=== PATIENT | male | born 1975 | race Caucasian/White ===

== ENCOUNTER 2024-03-04 21:53 | Emergency (ER) | payer BC, SELFPAY ==
[2024-03-04 22:01] VITALS: BP 152/105; PULSE 100; RESP 20; TEMP 37; O2SAT 100
[2024-03-05 00:17] VITALS: O2SAT 98
[2024-03-05 00:18] VITALS: BP 140/97; PULSE 102; RESP 17; O2SAT 97
--- NOTE | 2024-03-05 01:04 | ED.GENADULT ---
HPI - General Adult General Chief complaint: Unspecified Stated complaint: rectal issues Time Seen by Provider: 03/05/24 00:44 History of Present Illness HPI narrative: 48 y/o M presents to the emergency for hemorrhoids and rectal pain. Patient states he has had hemorrhoids for several weeks. States over the past few days his rectal pain is significantly worsened. He states he feels his hemorrhoids prolapsing and has to push them after he goes to the bathroom. Denies fever. Related Data Allergies Allergy/AdvReac Type Severity Reaction Status Date / Time No Known Allergies Allergy Verified 03/04/24 22:06 Review of Systems Review of Systems: All systems reviewed & are unremarkable except as noted in HPI and below Exam Narrative: GENERAL: Well-appearing, well-nourished, and in no acute distress. HEAD: Normocephalic, atraumatic. EYES: PERRLA and EOMI. RECTAL: Chaperoned by tech [place]: External hemorrhoid visualized that is nonthrombosed. Multiple internal hemorrhoids palpable and tender to palpation. No active bleeding. No anal fissures. EXTREMITIES: Normal range of motion. No edema. SKIN: Warm, dry, no rash. NEURO: No focal deficits. Alert and oriented x3 Course Vital Signs Vital signs: Vital Signs Temperature 98.6 F 03/04/24 22:01 Pulse Rate 100 03/04/24 22:01 Respiratory Rate 20 03/04/24 22:01 Blood Pressure 152/105 H 03/04/24 22:01 Pulse Oximetry 100 03/04/24 22:01 Oxygen Delivery Room Air 03/04/24 22:01 Temperature 98.6 F 03/04/24 22:01 Pulse Rate 102 H 03/05/24 00:18 Respiratory Rate 17 03/05/24 00:18 Blood Pressure 140/97 H 03/05/24 00:18 Pulse Oximetry 97 03/05/24 00:18 Oxygen Delivery Room Air 03/04/24 22:01 Medical Decision Making [facility] Narrative Medical decision making narrative: 48-year-old male presents to emergency department for rectal pain and hemorrhoids for several weeks, worsening over the past couple of days. Vital significant for hypertension. He is afebrile nontoxic appearing. Exam is significant for an external hemorrhoid and several internal hemorrhoids that are nonthrombosed and not prolapsed. I discussed supportive care including preparation H suppositories, Sitz baths, stool softeners, high-fiber diet, increase fluid intake and follow-up with general surgery. Patient and his fiancee are upset that I am not removing hemorrhoids in the ED. He is repeatedly asking if I can drain his hemorrhoids and states he is in severe and debilitating pain. I discussed it would be inappropriate to perform any procedures on the hemorrhoids in the ED given there is no thrombosed hemorrhoids. I again enforced the treatment plan and discussed initial trial of suppositories given he has not tried this at home and importance for follow up for further management. Will provide a very short course of Speculator for breakthrough pain in the interim. strict ED return precautions discussed. He is agreeable with the plan verbalized understanding. Discharged in stable condition. Vital Signs Vital Signs: Vital Signs Temperature 98.6 F 03/04/24 22:01 Pulse Rate 100 03/04/24 22:01 Respiratory Rate 20 03/04/24 22:01 Blood Pressure 152/105 H 03/04/24 22:01 Pulse Oximetry 100 03/04/24 22:01 Oxygen Delivery Room Air 03/04/24 22:01 Temperature 98.6 F 03/04/24 22:01 Pulse Rate 102 H 03/05/24 00:18 Respiratory Rate 17 03/05/24 00:18 Blood Pressure 140/97 H 03/05/24 00:18 Pulse Oximetry 97 03/05/24 00:18 Oxygen Delivery Room Air 03/04/24 22:01 Discharge Plan Discharge Clinical Impression: Hemorrhoids Qualifiers: Hemorrhoid type: unspecified Qualified Code(s): K64.9 - Unspecified hemorrhoids Patient Disposition: Home, Self-Care Condition: Stable Instructions: Antibiotic Form, Hemorrhoids (DC) Additional Instructions: You were evaluated in the emergency department for hemorrhoids. Your exam is consistent with he
[2024-03-05] MEDS: HYDROcodone/acetaminophen (*CRX) 5-325 MG TABLET 1 TAB PO (01:24)
[2024-03-05] MEDS: PHENYLEPHRINE HCL/COCOA BUTTER SUPP.RECT (*BKC) 1 SUPP RECTAL (01:36)
== END 2024-03-05 01:46 | disposition home or self-care (01) ==
PROVIDERS: Emergency Provider Physician Assistant
DX: K64.9 Unspecified hemorrhoids (principal)
CPT/HCPCS: 99283; A9270